=== PATIENT | female | born 1950 | race Caucasian/White ===

== ENCOUNTER → 2017-02-14 | Day surgery (SDC) | payer MEDICARE, OTHER ==
[~2017-02-14] MED LIST: GENTAMICIN SULFATE 80 MG/2 ML VIAL ONE; KETOROLAC TROMETHAMINE 30 MG/ML (IVP) VIAL IV PUSH ONE; LACTATED RINGER'S 1000 ML INJ 1,000 ML ONE; MIDAZOLAM HCL 2 MG/2 ML VIAL ONE; OMEP20TA39 PO; ONDANSETRON HCL 4 MG/2 ML VIAL IV PUSH ONE; PROPOFOL 200 MG/20 ML AMP IV ONE; SODIUM CHLORIDE 0.9% 100 ML ADDBAG IV ONE; SODIUM CHLORIDE 0.9% 20 ML VIAL ONE
--- NOTE | 2017-02-14 16:35 | TN ---
cc: YESSI ALY M.D. DATE OF SURGERY: 02/14/2017 PREOPERATIVE DIAGNOSIS Right renal calculus (1.6 )(ICD - 10N20.0. POSTOPERATIVE DIAGNOSES Right renal calculus (1.6 )(ICD - 10N20.0. PROCEDURES 1. Extracorporeal shock wave lithotripsy (ESWL of right renal calculus (CPT Code 1697244286. 2. Cystourethroscopy with right ureteral stent placement (6-Kisw[place]ili x 22 cm) (CPT code 68011). INDICATIONS Ms. Kang is a 66-year-old woman with a large right renal stone presents now for definitive treatment using extracorporal shock wave lithotripsy and stent placement due to overall stone burden. FINDINGS Normal urethra. The ureteral orifice normal size, shape and position effluxing clear urine. There are some diffuse lymph vesicles but the bladder itself shows no calcifications, no diverticula cellules, tumors or other suspicious mucosa. The fluoroscopic imaging shows an approximately 16 mm right renal calculus presumably in the mid pole of the kidney. PROCEDURE Procedure as well as risks and benefits were explained to the patient. Informed consent was obtained. The patient was taken to the major operative theater where she was placed in the [employer] SLX-FII lithotripsy machine. At this time, the patient was identified as well as the operative site. A universal timeout was performed in standard fashion. She was given general anesthetic and prophylactic intravenous antibiotics consisting of gentamicin 80 mg. After adequate anesthetic, she was placed in a low dorsolithotomy position, prepped and draped in the usual sterile fashion. At this time a 22.5 Kisw[place]ili obturator and sheath were placed into the bladder to the urethra and the obturator removed and a 30-degree lens cystoscope was placed. The bladder was systematically surveyed. Attention was then directed to the right ureteral orifice where under direct vision a 0.035 inch hybrid wire was placed under fluoroscopic guidance up the ureter into the renal pelvis encircling the stone. At this time, over the guidewire a 6-Kisw[place]ili x 22 cm double-J ureteral stent was placed with the help of a pusher. When the stent was seen in the renal pelvis the pusher and guidewire were removed. There was a nice curl around the stone within the renal pelvis and under direct vision a nice curl in the bladder. The bladder was then decompressed, the cystoscope removed. The patient was then placed back in a supine position. Fluoroscopic C-arm was used to again to visualize the aforementioned stone. The shock heads were engaged and extracorporal shock wave lithotripsy was performed in standard fashion. First at 120 Hz and then 90 Hz, total power level was 7.0 and the number of shocks was 3000 shocks. There was apparent pulverization of the stone. Due to the overall stone burden, the patient may require additional endoscopic or extracorporal treatment depending on the results of the KUB in one-to-two weeks. The patient tolerated the procedure well, emerged from anesthetic without difficulty and transferred to the recovery room in stable condition to be discharged home when criteria met. There were no obvious complications. MD BROOKE Armstrong/GABRIELLE /3:45 PM /4:11 PM
== END | disposition home or self-care (01) ==
LOC: ESDC 12:51
PROVIDERS: ATTEND Urology
DX: N20.0 Calculus of kidney (principal)
CPT/HCPCS: 00872; 00910; 50590; 52332; C1769; J1580; J1885; J2250; J2405; J3010; J7120